=== PATIENT | female | born 1960 | race Caucasian/White ===

== ENCOUNTER 2017-07-17 07:59 | Day surgery (SDC) | payer OTHER ==
[~2017-07-17 07:59] MED LIST: Lactated Ringers 1,000 ML IV SCH; Sodium Chloride 0.9% 10 ML Syringe FLUSH PRN
[2017-07-17] MEDS ORDERED: Midazolam 1 MG/ML 2 ML SDV ONE ×2 (08:27→09:06)
[2017-07-17] MEDS ORDERED: Propofol 200 MG/20 ML SDV ONE ×2 (08:27→09:06)
[2017-07-17] MEDS ORDERED: fentaNYL 100 MCG/2 ML SDV ONE ×2 (08:27→09:06)
--- NOTE | 2017-07-17 09:13 | PCM.HPR ---
H & P Addendum review - H & P Addendum Review Date of Original H & P: 06/24/17 Date Reviewed: 07/17/17 Time Reviewed: 08:05 Patient was Examined: No Changes
--- NOTE | 2017-07-17 09:41 | PCM.OPNOTE ---
- General Post-Op/Procedure Note Date of Surgery/Procedure: 07/17/17 Operative Procedure(s): Colonoscopy Findings: Sig Tics Pre Op Diagnosis: FH Colon Ca Post-Op Diagnosis: Same Anesthesia Technique: MAC Primary Surgeon: Hansel King Anesthesia Provider: Manjula Toure Complications: None Condition: Good
--- NOTE | 2017-07-17 14:07 | OR ---
Date of Procedure: 07/17/2017 PREOPERATIVE DIAGNOSES: 1. Family history of colon cancer. 2. Sigmoid diverticulosis. POSTOPERATIVE DIAGNOSIS: Sigmoid diverticulosis. PROCEDURE: Colonoscopy. ANESTHESIA: IV sedation. DESCRIPTION OF PROCEDURE: The patient was brought to the procedure room, where she was placed on her left side and IV sedation administered. Digital rectal exam was performed, which was normal. Colonoscope was inserted and advanced to the level of the cecum without difficulty. Cecal position was confirmed by identifying the appendiceal lumen and ileocecal valve. Prep was good and surfaces were well visualized. Upon withdrawing the scope, the ascending, transverse, and descending colon were normal in appearance. Sigmoid colon had a few diverticula present. Rectum was normal and retroflexion was normal other than a squamous papilloma at the anal verge. Air was removed and the scope withdrawn. The patient tolerated the procedure well, returned to recovery in stable condition. Recommend routine colon screening again in 5 years. COLIN BRODY MD /[id number]
[2017-07-17 15:29] VITALS: BP 110/71
== END 2017-07-17 10:35 | disposition home or self-care (01) ==
LOC: LL.SDS 07:59
PROVIDERS: ATTEND Surgery
DX: Z12.11 Encounter for screening for malignant neoplasm of colon (principal); K57.30 Diverticulosis of large intestine without perforation or abscess without bleeding; F41.8 Other specified anxiety disorders; Z80.0 Family history of malignant neoplasm of digestive organs; Z91.013 Allergy to seafood; Z79.899 Other long term (current) drug therapy; Z79.84 Long term (current) use of oral hypoglycemic drugs
CPT/HCPCS: 45378; J2250; J2704; J3010; J7120; 00812

== ENCOUNTER 2021-04-25 21:51 | Emergency (ER) | payer OTHER ==
[2021-04-25] MEDS ORDERED: Sodium Chloride 0.9% 10 ML Syringe FLUSH PRN (22:01)
[2021-04-25] MEDS ORDERED: Lactated Ringers 1,000 ML IV ONE ×2 (22:01→23:36)
[2021-04-25 22:39] LABS: ANION GAP 11.1 meq/L (7-15); CHLORIDE,CL 105 mmol/L (98-107); SODIUM,NA 143 mmol/L (136-145)
[2021-04-25] MEDS ORDERED: Ondansetron 4 MG/2 ML SDV IVPUSH STA (22:55)
[2021-04-25] MEDS ORDERED: Acetaminophen 650 MG Supp RECTAL PRN (22:55)
[2021-04-25] MEDS ORDERED: Morphine 2 MG/ML SYRINGE IVPUSH ONE (22:55)
--- NOTE | 2021-04-25 23:05 | EDM.PDOC ---
ED HPI GENERAL MEDICAL PROBLEM - General Chief Complaint: Abdominal Pain Stated Complaint: abdominal pain and bloating Time Seen by Provider: 04/25/21 22:15 Source of Information: Reports: Patient History Limitations: Reports: No Limitations - History of Present Illness INITIAL COMMENTS - FREE TEXT/NARRATIVE: Isela Flores has a PMH significant for gastric bypass and recurrent SBO as well as HTN, eating disorder unspecified and nicotine dependence. She came to the ED after experiencing sudden onset abdominal pain and bloating. this had happened in the past. it has always been and currently is associated with abdominal pain that is rated 5-6/10. located in abdomen. aching and constant in character with no radiation. She generally avoids oral intake, takes ibuprofen at home for pain and rests and it will self resolve but this time it was more severe and wasn't resolving so she came to the ED for evaluation and treatment. Onset: Today, Sudden Duration: Hour(s): Quality: Reports: Ache, Pressure, Other Severity: Moderate Improves with: Reports: Other (bowel rest) Worsens with: Reports: Eating Context: Reports: Other (in the setting of hx of gastric bypass) Associated Symptoms: Reports: Loss of Appetite. 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: Other (see below) (ibuprofen) Abdomen Pain Score (Numeric/FACES): 6 - Related Data Allergies Allergy/AdvReac Type Severity Reaction Status Date / Time Fish Containing Products Allergy Vomiting Verified 04/25/21 21:52 Home Meds: Home Meds DULoxetine [Cymbalta] 90 mg PO DAILY 04/25/21 [History] Ibuprofen 400 mg PO Q6H PRN 04/25/21 [History] Lisdexamfetamine [Vyvanse] 60 mg PO DAILY 04/25/21 [History] hydrOXYzine HCL [hydrOXYzine] 1 tab PO Q6H PRN 04/25/21 [History] Past Medical History HEENT History: Reports: None Cardiovascular History: Reports: None Respiratory History: Reports: None Gastrointestinal History: Reports: Bowel Obstruction, Cholelithiasis, GERD, Hemorrhoids, Other (See Below) (hx of gastric bypass) Other Gastrointestinal History: Gastroparesis Genitourinary History: Reports: None Other AUTOCAD DETAILER History: tubal Musculoskeletal History: Reports: Fracture Neurological History: Reports: None Psychiatric History: Reports: Anxiety, Depression Endocrine/Metabolic History: Reports: Vitamin D Deficiency, Other (See Below) Other Endocrine/Metabolic History: Hypoglycemia Immunologic History: Reports: None Oncologic (Cancer) History: Reports: None Dermatologic History: Reports: None - Past Surgical History HEENT Surgical History: Reports: Tonsillectomy GI Surgical History: Reports: Appendectomy, Bariatric Procedure, Cholecystectomy, Colonoscopy, EGD, Other (See Below) Other GI Surgeries/Procedures: Hemorrhoidectomy Female Surgical History: Reports: Section, Hysterectomy Musculoskeletal Surgical History: Reports: Other (See Below) Other Musculoskeletal Surgeries/Procedures:: Right wrist surgery with pins placed Social & Family History - Tobacco Use Tobacco Use Status *Q: Current Every Day Tobacco User Years of Tobacco use: 40 Packs/Tins Daily: 0.5 Smoking Cessation Information Provided To Patient: Patient Refused Second Hand Smoke Exposure: No - Tobacco Core Measures Tobacco Use/Smoking Within Last 30 Days: Yes Smoking Frequency Within Last 30 Days: Reports: Five or More Cigarettes Per Day Smokeless Tobacco Use in Last 30 Days: Yes Smokeless Tobacco Use History: None Desires Tobacco Cessation Medication: Refuses FDA Approved Med - Caffeine Use Caffeine Use: Reports: Coffee, Soda - Recreational Drug Use Recreational Drug Use: No - Living Situation & Occupation Living situation: Reports: , Single ED ROS GENERAL - Review of Systems Review Of Systems: See Below Constitutional: Reports: No Symptoms, Decreased Appetite. Denies: Fever, Chills HEENT: Reports: No Symptoms Respiratory: Reports: No Symptoms. Denies: Shortness of Breath, Wheezing Cardiovascular: Reports: No Symptoms. Denies: Chest Pain, Dyspnea on Exertion, Edema Endocrine: Reports: No Symptoms GI/Abdominal: Reports: Abdominal Pain, Anorexia, Decreased Appetite, Distension : Reports: No Symptoms Musculoskeletal: Reports: No Symptoms Skin: Reports: No Symptoms Neurological: Reports: No Symptoms Psychiatric: Reports: No Symptoms Hematologic/Lymphatic: Reports: No Symptoms Immunologic: Reports: No Symptoms ED EXAM, GI/ABD - Physical Exam Exam: See Below Exam Limited By: No Limitations General Appearance: Alert, Mild Distress. No: Anxious, Obese Ears: Hearing Grossly Normal Nose: Normal Inspection Throat/Mouth: Normal Inspection, Normal Teeth, Normal Voice Head: Atraumatic, Normocephalic Neck: Supple Respiratory/Chest: No Respiratory Distress, Lungs Clear, Normal Breath Sounds, No Accessory Muscle Use Cardiovascular: Normal Peripheral Pulses, Regular Rate, Rhythm, No Edema, No JVD, No Murmur, No Rub GI/Abdominal Exam: Soft, Distended, Tender (Female) Exam: Deferred Rectal (Female) Exam: Deferred Back Exam: Full Range of Motion Extremities: Normal Range of Motion, Non-Tender, No Pedal Edema Neurological: Alert, Oriented, Normal Cognition Psychiatric: Normal Affect, Normal Mood Skin Exam: Warm, Dry, Intact, Normal Color Course - Vital Signs Last Recorded V/S: Last Vital Signs Temp 97.6 F 04/25/21 21:51 Pulse 64 04/26/21 00:51 Resp 17 04/26/21 00:51 BP 130/83 04/26/21 00:51 Pulse Ox 98 04/26/21 00:51 - Orders/Labs/Meds Orders: Active Orders 24 hr Category Date Time Status Peripheral IV Care [RC] . DIRECTED Care 04/25/21 22:02 Active Up With Assistance [RC] ASDIRECTED Care 04/25/21 22:55 Active Nothing per Oral Now Diet [DIET] Diet 04/25/21 Breakfast Active Abdomen 2V AP Flat Upright [CR] Stat Exams 04/25/21 22:02 Taken Acetaminophen [Tylenol] Med 04/25/21 22:55 Active 650 mg RECTAL Q6H PRN Sodium Chloride 0.9% [Saline Flush] Med 04/25/21 22:01 Active 10 ml FLUSH ASDIRECTED PRN ED Pain Medications Reflex [OM.PC] Stat Oth 04/25/21 22:57 Ordered Peripheral IV Insertion Adult [OM.PC] Routine Oth 04/25/21 22:01 Ordered Resuscitation Status Routine Resus Stat 04/25/21 22:55 Ordered Medication Orders Acetaminophen (Acetaminophen 650 Mg Supp) 650 mg RECTAL Q6H PRN PRN Reason: Pain Sodium Chloride (Sodium Chloride 0.9% 10 Ml Syringe) 10 ml FLUSH ASDIRECTED PRN PRN Reason: Keep Vein Open Labs: Laboratory Tests 04/25/21 04/25/21 Range/Units 22:20 22:20 WBC 9.9 (4.0-10.2) K/uL RBC 4.67 (3.77-5.09) M/uL Hgb 14.6 (11.7-15.5) g/dL Hct 43.7 (34.0-46.0) % MCV 93.6 (84.0-98.0) fL MCH 31.3 (28.2-33.3) pg MCHC 33.4 (31.7-36.0) g/dL RDW 13.2 (11.2-14.1) % Plt Count 346 (150-350) K/uL Neut % (Auto) 69.1 (45.0-80.0) % Lymph % (Auto) 21.2 (10.0-50.0) % [place] % (Auto) 7.0 (2.0-14.0) % Eos % (Auto) 2.3 (0.0-5.0) % Baso % (Auto) 0.4 (0.0-2.0) % Neut # (Auto) 6.82 (1.40-7.00) K/uL Lymph # (Auto) 2.09 (0.50-3.50) K/uL [place] # (Auto) 0.69 (0.00-1.00) K/uL Eos # (Auto) 0.23 (0.00-0.50) K/uL Baso # (Auto) 0.04 (0.00-0.20) K/uL Sodium 143 (136-145) mmol/L Potassium 4.2 (3.5-5.1) mmol/L Chloride 105 (98-107) mmol/L Carbon Dioxide 26.9 (21.0-32.0) mmol/L Anion Gap 11.1 (7-15) meq/L BUN 21 H (7-18) mg/dL Creatinine 0.73 (0.51-1.17) mg/dL Est Cr Clr Drug Dosing 77.68 mL/min Estimated GFR (MDRD) > 60 mL/min Glucose 119 H (70-99) mg/dL Calcium 9.5 (8.5-10.1) mg/dL Meds: Medications Generic Name Dose Route Start Last Admin Trade Name Freq PRN Reason Stop Dose Admin Acetaminophen 650 mg 04/25/21 22:55 Acetaminophen 650 Mg Supp RECTAL Q6H PRN Pain Sodium Chloride 10 ml 04/25/21 22:01 Sodium Chloride 0.9% 10 Ml Syringe FLUSH ASDIRECTED PRN Keep Vein Open Discontinued Medications Generic Name Dose Route Start Last Admin Trade Name Freq PRN Reason Stop Dose Admin Lactated Ringer's 1,000 mls @ 999 mls/hr 04/25/21 22:01 04/25/21 22:08 Ringers, Lactated IV 04/25/21 23:01 999 mls/hr .BOLUS ONE Administration Lactated Ringer's 1,000 mls @ 999 mls/hr 04/25/21 23:36 04/25/21 23:38 Ringers, Lactated IV 04/26/21 00:36 999 mls/hr .BOLUS ONE Administration Morphine Sulfate 2 mg 04/25/21 22:55 04/25/21 23:08 Morphine 2 Mg/Ml Syringe IVPUSH 04/25/21 22:56 2 mg ONETIME ONE Administration Ondansetron HCl 4 mg 04/25/21 22:55 04/25/21 23:08 Ondansetron 4 Mg/2 Ml Sdv IVPUSH 04/25/21 22:56 4 mg ASDIRECTED STA Administration - Re-Assessments/Exams Free Text/Narrative Re-Assessment/Exam: 04/25/21 23:07 Met with patient at bedside at 2215. complaints of abdominal pain. CBC, BMP, abdominal XR all ordered. LR 1L bolus started. no nausea or vomiting so no NG tube. mild abdominal pain and distension on exam. pt mildly uncomfortable. has had bowel obstructions in the past so is aware of the progression. 04/25/21 23:12 abdominal XR shows decompressed distal bowel and significant constipation proximally 04/25/21 23:12 all labs WNL. pain on exam was mild and at this time doesn't appear to warrant a CT of her abdomen. will continue to monitor with pain control and IVF. 04/26/21 00:53: 2nd liter of LR in. 2mg of morphine given. pt states pain is largely resolved and she is passing gas. pt and daughter comfortable going home and continuing sips of water until return of full bowel function (BM). will return if worsening symptoms. Departure - Departure Time of Disposition: 00:55 Disposition: Home, Self-Care 01 Condition: Good Clinical Impression: Partial small bowel obstruction, Constipation - Discharge Information *PRESCRIPTION DRUG MONITORING PROGRAM REVIEWED*: Not Applicable *COPY OF PRESCRIPTION DRUG MONITORING REPORT IN PATIENT PAPO: Not Applicable Instructions: Bowel Obstruction, [id number], Constipation, Adult, [id number] Referrals: Dana Hess MD [Emergency Provider] - Forms: ED Department Discharge Sepsis Event Note (ED) - Evaluation Sepsis Screening Result: No Definite Risk - Focused Exam Vital Signs: Vital Signs Temp Pulse Resp BP Pulse Ox 04/26/21 00:51 64 17 130/83 98 04/26/21 00:08 65 17 148/88 H 100 04/25/21 23:16 63 16 111/80 98 04/25/21 22:51 63 16 117/79 98 04/25/21 22:35 62 18 121/87 100 04/25/21 22:15 65 19 112/80 98 04/25/21 21:51 97.6 F 66 22 H 121/70 100 - Problem List Review Problem List Initiated/Reviewed/Updated: Yes - My Orders Last 24 Hours: My Active Orders 04/25/21 Breakfast Nothing per Oral Now Diet [DIET] 04/25/21 22:01 Sodium Chloride 0.9% [Saline Flush] 10 ml FLUSH ASDIRECTED PRN Peripheral IV Insertion Adult [OM.PC] Routine 04/25/21 22:02 Peripheral IV Care [RC] . DIRECTED Abdomen 2V AP Flat Upright [CR] Stat 04/25/21 22:55 Up With Assistance [RC] ASDIRECTED Acetaminophen [Tylenol] 650 mg RECTAL Q6H PRN Resuscitation Status Routine 04/25/21 22:57 ED Pain Medications Reflex [OM.PC] Stat - Assessment/Plan Last 24 Hours: My Active Orders 04/25/21 Breakfast Nothing per Oral Now Diet [DIET] 04/25/21 22:01 Sodium Chloride 0.9% [Saline Flush] 10 ml FLUSH ASDIRECTED PRN Peripheral IV Insertion Adult [OM.PC] Routine 04/25/21 22:02 Peripheral IV Care [RC] . DIRECTED Abdomen 2V AP Flat Upright [CR] Stat 04/25/21 22:55 Up With Assistance [RC] ASDIRECTED Acetaminophen [Tylenol] 650 mg RECTAL Q6H PRN Resuscitation Status Routine 04/25/21 22:57 ED Pain Medications Reflex [OM.PC] Stat Assessment:: see below Plan: partial small bowel obstruction gastroparesis constipation abdominal pain 2/2 above: - pain improved with 2mg IV morphine. 2L LR given. electrolytes WNL. Plan: - discharge home with conservative management. - pain control with rectal acetaminophen or sips of water and PO acetaminophen or ibuprofen OTC - sips of clear liquid until full bowel recovery - miralax 1 cap n 4 oz liquid daily for constipation - low fiber diet/avoid fiber supplementations - follow up with Dr. Hess in clinic in one week for post hospital follow up and establish care at which time we will discuss official gastric emptying study as well as initiation of linzess post study to assist with delayed transit
[2021-04-26 00:52] VITALS: BP 130/83; PULSE 64
== END 2021-04-26 01:20 | disposition home or self-care (01) ==
LOC: LL.ED 21:51
DX: K56.600 Partial intestinal obstruction, unspecified as to cause (principal); K59.00 Constipation, unspecified; Z72.0 Tobacco use; Z91.013 Allergy to seafood
CPT/HCPCS: 36415; 74019; 80048; 85025; 96374; 96375; 99284; J2270; J2405; J7120

== ENCOUNTER 2021-07-04 14:55 | Emergency (ER) | payer OTHER ==
[2021-07-04] MEDS ORDERED: Bacitracin/Neomycin/Polymyxin B Oint 0.9 GM U/D Packet TOP ONE (15:29)
[2021-07-04 17:25] VITALS: BP 122/62; PULSE 80
== END 2021-07-04 15:50 | disposition home or self-care (01) ==
LOC: LL.ED 14:55
DX: S61.012A Laceration without foreign body of left thumb without damage to nail, initial encounter (principal); W26.8XXA Contact with other sharp object(s), not elsewhere classified, initial encounter; Y93.E8 Activity, other personal hygiene; Y99.0 Civilian activity done for income or pay
CPT/HCPCS: 12001; 99282-25

== ENCOUNTER 2022-03-15 04:12 | Emergency (ER) | payer OTHER ==
[2022-03-15] MEDS ORDERED: Ondansetron 4 MG Tab.DIS PO ONE (04:42)
[2022-03-15 05:41] LABS: ANION GAP 7.8 meq/L (7-15); CHLORIDE,CL 102 mmol/L (98-107); SODIUM,NA 140 mmol/L (136-145)
[2022-03-15 05:42] LABS: ESTIMATED GFR 78 mL/min (>=60)
[2022-03-15] MEDS ORDERED: Sodium Chloride 0.9% 500 ML IV SCH (05:45)
[2022-03-15] MEDS ORDERED: Promethazine 25 MG/ML SDV IM ONE (06:00)
[2022-03-15] MEDS ORDERED: Iopamidol 612 MG/ML 100 ML Bottle ONE (06:19)
[2022-03-15] MEDS ORDERED: Pantoprazole 40 MG Vial IVPUSH ONE (06:23)
[2022-03-15] MEDS ORDERED: Pantoprazole 80 MG in Sodium Chloride 0.9% 100 ML IV SCH (08:30)
[2022-03-15] MEDS ORDERED: LORazepam 2 MG/ML SDV IVPUSH ONE (08:55)
[2022-03-15] MEDS ORDERED: Lactated Ringers 1,000 ML IV SCH (09:15)
[2022-03-15] MEDS ORDERED: Ondansetron 4 MG/2 ML SDV IVPUSH ONE (09:19)
[2022-03-15] MEDS ORDERED: Ondansetron 4 MG/2 ML SDV ONE (09:21)
[2022-03-15] MEDS ORDERED: Sodium Chloride 0.9% 10 ML Syringe FLUSH PRN (09:43)
[2022-03-15 13:46] VITALS: BP 131/91; PULSE 67
== END 2022-03-15 10:10 ==
LOC: LL.ED 04:12
DX: K92.2 Gastrointestinal hemorrhage, unspecified (principal); K56.699 Other intestinal obstruction unspecified as to partial versus complete obstruction; Z79.899 Other long term (current) drug therapy; Z91.013 Allergy to seafood; Z90.49 Acquired absence of other specified parts of digestive tract; Z90.710 Acquired absence of both cervix and uterus; Z87.891 Personal history of nicotine dependence
CPT/HCPCS: 36415; 43752; 71045; 74019; 74177; 80053; 82271; 85025; 96361; 96365; 96372; 96375; 96376; 99284; 99285-25; A9270-GY; C9113; J2060; J2405; J2550; J3490; J7040; J7120; Q9967

== ENCOUNTER 2022-11-27 12:52 | Emergency (ER) | payer OTHER ==
[2022-11-27 12:57] VITALS: BP 121/81; PULSE 73
[2022-11-27] MEDS ORDERED: Lidocaine 2% with EPINEPHrine 1:100,000 20 ML MDV INJECT ONE (13:06)
[2022-11-27] MEDS ORDERED: Diphtheria,Pertussis(Acell),Tetanus Vaccine 0.5 ML Syringe IM ONE (13:30)
[2022-11-27] MEDS ORDERED: Bacitracin Oint 1 GM U/D Packet TOP ONE (15:13)
== END 2022-11-27 16:15 | disposition home or self-care (01) ==
LOC: LL.ED 12:52
DX: S81.812A Laceration without foreign body, left lower leg, initial encounter (principal); K21.9 Gastro-esophageal reflux disease without esophagitis; Z23 Encounter for immunization; Z87.891 Personal history of nicotine dependence; Z91.013 Allergy to seafood; Z79.899 Other long term (current) drug therapy; W26.8XXA Contact with other sharp object(s), not elsewhere classified, initial encounter; Y92.59 Other trade areas as the place of occurrence of the external cause
CPT/HCPCS: 12004; 90471; 90715; 99282-25; J3490